=== PATIENT | male | born 1960 | race Caucasian/White ===

== ENCOUNTER 2022-03-25 14:45 | Inpatient (IN) | payer OTHER ==
[~2022-03-25] VITALS: Ht 193 cm; Wt 145.2 kg
[2022-03-25] MEDS ORDERED: LISINOPRIL40 MG PO (17:53)
[2022-03-25] MEDS ORDERED: JARDIANCE25 MG PO (17:53)
[2022-03-25] MEDS ORDERED: METFORMIN HCL500 M1 PO (17:53)
[2022-03-25] MEDS ORDERED: HYDROCODON-ACE1 EA10 PO (18:46)
[2022-03-25] MEDS ORDERED: METOPROLOL SUC100 MG PO (19:51)
[2022-03-25] MEDS ORDERED: CITALOPRAM HBR40 MG PO (19:51)
[2022-03-25] MEDS ORDERED: HYDROCHLOROTHIA25 MG PO (19:52)
[2022-03-25] MEDS ORDERED: CHLORTHALIDONE25 MG PO (19:52)
[2022-03-25] MEDS ORDERED: CRESTOR5 MG PO (19:53)
[2022-03-25] MEDS ORDERED: ASPIRIN325 MG PO (19:54)
[2022-03-26] MEDS ORDERED: LANTUS SOL100 UNIT/1 SUB-Q (14:41)
--- NOTE | 2022-03-30 08:13 | OR ---
[facility] [address] [place], [place] [address] Signed DATE OF OPERATION: 03/29/2022 SURGEON: Frank Arechiga DPM PREOPERATIVE. DIAGNOSES: 1. Osteomyelitis, proximal phalanx, left 1st digit. 2. Soft tissue abscess and infection. POSTOPERATIVE DIAGNOSES: 1. Osteomyelitis, proximal phalanx, left 1st digit. 2. Soft tissue abscess and infection. PROCEDURE PERFORMED: 1. Amputation of the left 1st digit at the metatarsal phalangeal joint. 2. Debridement of unhealthy necrotic soft tissue on the medial left foot. NURSE EXPERIMENTAL MACHINING LAB MANAGER: Eugenio Lara. ANESTHESIA: Local with MAC consisting of 1:1 mix of 2% lidocaine plain and 0.5% ropivacaine plain, 10 mL of this mixture were utilized and additional 5 mL of just 0.5% ropivacaine was also utilized in the ankle block format. ESTIMATED BLOOD LOSS: Less than 5 mL or minimal. HEMOSTASIS: Ankle tourniquet. MATERIALS USED: Stimulan Rapid Cure beads set of 5 mL mixed with 1/3rd gram of vancomycin. 3-0 nylon was also utilized. PROCEDURE IN DETAIL: The patient was brought into the operating room and placed upon the operating table in the supine position. Following IV sedation, the above local anesthesia was administered around the patient's left medial foot and ankle regions. The foot was then scrubbed, prepped, and draped in the usual sterile technique. An Esmarch bandage was then utilized to exsanguinate the patient's left foot and then left wrapped around the ankle Electronically Signed By: FRANK ARECHIGA DPM 03/30/22 0813 PATIENT NAME: JESSICA BATES OPERATIVE REPORT DATE OF : 56 REPORT #: [id number] PHYSICIAN: FRANK ARECHIGA DPM PCP: OTHER PCP REPORT IS CONFIDENTIAL AND NOT TO BE RELEASED WITHOUT AUTHORIZATION [facility] [address] [place], [place] [address] Signed to act as tourniquet. Attention was then directed to the left medial foot where multiple small wounds were located at metatarsophalangeal joint level. Utilizing a #15 surgical blade, an incision was performed leaving the intact viable tissue on the plantar aspect of the digits well circumscribing around the open wounds on the medial and lateral aspect of the base of the first digit. The incision was extended along the medial and lateral aspects of the first digit distally to capture the viable plantar integument. The incision was deepened through the soft tissue and deep fascia down to the bone. Also on the dorsal aspect of the first metatarsal a transverse incision was made joining in the incisions that ran along the medial and lateral aspects of the first digit. This incision was also deepened down to the metatarsophalangeal joint. Transverse capsulotomy was performed utilizing a #64 blade. The soft tissue was degloved from the plantar aspect of the first digit and the first digit was then removed with the dorsal integument intact. This was passed to the back table to be sent to Pathology for review. At this time, nonvascular tissues such as tendon and deep fascia were slightly debrided. There were area of necrosis or pockets of brown or grayish fatty tissue that were present along with the fibrotic tissue and gelatinous bioburden. In all, there was only approximately 10% of the soft tissue that appear to be involved around the base of the digit, however there was a tracking that extended more proximally into the skin depths that located over the dorsal 2nd metatarsal as well as proximally over the dorsal medial aspect of the first metatarsal. A lot of the infection appeared also to have occurred along the flexor tendon area of the plantar aspect of the foot. This area was also debrided. The articular surface in the first metatarsal appeared to be viable with no discoloration and present no sign of active bacterial infection. Structural integrity was also found to be good. The dorsal second metatarsal ulceration was debrided full skin thickness down to deep fascia in this area. Skin margins were also freshened and necrotic tissue under adjacent integument was also debrided as needed. Pulse lavage was then utilized to copiously flush the area with sterile normal saline. Next, a small amount of Stimulan beads with vancomycin was then placed around the first metatarsal head. The plantar skin flap from the removal of the first digit was then brought out proximally and sutured in place to close the primary amputation site. The ulceration on the second metatarsal dorsally was left open. Surgical site was closed utilizing 3-0 nylon in the simple interrupted suture technique. The wound was then dressed utilizing Xeroform over the open portion at the dorsal second metatarsal and also covering the suture closed area of the first digit amputation. Light fluff gauze was applied followed by silver foam, additional fluff gauze, Kerlix, Coban, ABD pad were also applied dorsally over the open wound area to capture any bleeding from that wound area. Coban was applied for light compression. The ankle tourniquet was removed and prompt hyperemic response was noted to all digits of the patient's left foot that remained digits 2 through 5. The patient was then escorted to the recovery room area with vital signs intact and again good circulation and cap refill time to the digits. The patient tolerated the procedure and the anesthesia well. The patient has to be readmitted to the Medical Surgical floor for further observation and Electronically Signed By: FRANK ARECHIGA DPM 03/30/22 0813 PATIENT NAME: JESSICA BATES OPERATIVE REPORT DATE OF : 56 REPORT #: [id number] PHYSICIAN: FRANK ARECHIGA DPM PCP: OTHER PCP REPORT IS CONFIDENTIAL AND NOT TO BE RELEASED WITHOUT AUTHORIZATION [address] [address] Signed antibiotic placement. Frank Arechiga DPM /CLARITA /[id number] Copies: ~ Electronically Signed By: FRANK ARECHIGA DPM 03/30/22812 PATIENT NAME: JESSICA BATES OPERATIVE REPORT DATE OF : 56 REPORT #: [id number] PHYSICIAN: FRANK ARECHIGA DPM PCP: OTHER PCP REPORT IS CONFIDENTIAL AND NOT TO BE RELEASED WITHOUT AUTHORIZATION
[2022-03-30] MEDS ORDERED: AMOX TR-K CLV1 EAC1 PO (10:00)
[2022-03-30] MEDS ORDERED: HYDROCODON-ACE1 EA10 PO (10:01)
--- NOTE | 2022-04-02 17:28 | PATH ---
[facility] [address] [place], [place] [address] Signed SPECIMEN(S): A LEFT BIG TOE PROXIMAL PHALANX SPECIMEN SOURCE: A. LEFT BIG TOE PROXIMAL PHALANX CLINICAL HISTORY: Sepsis secondary to left foot purulent cellulitis FINAL PATHOLOGIC DIAGNOSIS: First toe, left, disarticulation amputation: - Acute osteomyelitis. - Soft tissue abscess and necrosis with overlying epidermal ulceration. NAL:smh:C2NR MICROSCOPIC EXAMINATION: Histologic sections of all submitted blocks are examined by light microscopy. These findings, together with the gross examination, support the pathologic diagnosis. GROSS DESCRIPTION: The specimen, labeled "Tonny left big toe as per the requisition," is received in formalin and consists of a single digit (7.8 cm proximal to distal x 3.5 cm medial to lateral x 3.2 cm dorsal to plantar) that has been disarticulated from the metatarsophalangeal joint. The epidermal surface on the plantar aspect is removed and exposes underlying soft tissue. At the medial proximal aspect, 0.2 cm from the skin soft tissue margins, is a 2.6 x 2.1 x 0.6 cm ulcerative, gangrenous lesion. At the proximal lateral aspect, the skin appears to be previously removed and exposes olguin purple mottled, necrotic subcutaneous tissue (2.0 cm in greatest dimension). The skin and soft tissue margins are inked blue. The underlying bone is firm and cuts with difficulty. Machine Hoop Maker Helper sections are submitted for Stat decalcification as follows: Cassette summary A1 medial lesion with underlying bone A2 lateral lesion with underlying bone KD (under the direct supervision of a pathologist) The Gross Description was prepared using a voice recognition system. The report was reviewed for accuracy; however, sound-alike word errors, addition and/or PATIENT NAME: JESSICA BATES PATHOLOGY DATE OF : 56 REPORT #: [id number] PHYSICIAN: JAKE PATHOLOGY PCP: OTHER PCP REPORT IS CONFIDENTIAL AND NOT TO BE RELEASED WITHOUT AUTHORIZATION [facility] [address] [place] [address] Signed deletions may occur. If there is any question about this report, please contact Client Services. PERFORMING LABORATORY: The technical component was [place] [address] (CLIA# [id number]). Professional interpretation was performed by [facility], [address] [address] (CLIA# [id number]). Diagnostician: Charlene Weinberg MD Pathologist Electronically Signed 04/02/2022 Copies: ~ PATIENT NAME: JESSICA BATES PATHOLOGY DATE OF : 56 REPORT #: [id number] PHYSICIAN: JAKE PATHOLOGY PCP: OTHER PCP REPORT IS CONFIDENTIAL AND NOT TO BE RELEASED WITHOUT AUTHORIZATION
== END 2022-03-30 12:05 | disposition home or self-care (01) | DRG 854 ==
LOC: ED 14:45 → CCU 20:49 → MS 20:49
PROVIDERS: Podiatrist Foot & Ankle Surgery; ADMIT Internal Medicine; ATTEND Internal Medicine
PROC: 3E03329 Introduction of Other Anti-infective into Peripheral Vein, Percutaneous Approach (ICD-10-PCS; 2022-03-25)
PROC: 0S9N0ZZ Drainage of Left Metatarsal-Phalangeal Joint, Open Approach (ICD-10-PCS; 2022-03-26)
PROC: 0JBR0ZZ Excision of Left Foot Subcutaneous Tissue and Fascia, Open Approach (ICD-10-PCS; 2022-03-26)
PROC: 0Y6N0Z4 Detachment at Left Foot, Complete 1st Ray, Open Approach (ICD-10-PCS; principal; 2022-03-29 10:00)
DX: A40.1 Sepsis due to streptococcus, group B (principal); L03.116 Cellulitis of left lower limb; M86.8X7 Other osteomyelitis, ankle and foot; I96 Gangrene, not elsewhere classified; Z20.822 Contact with and (suspected) exposure to COVID-19; I10 Essential (primary) hypertension; E11.69 Type 2 diabetes mellitus with other specified complication; L97.523 Non-pressure chronic ulcer of other part of left foot with necrosis of muscle; E11.621 Type 2 diabetes mellitus with foot ulcer; E11.65 Type 2 diabetes mellitus with hyperglycemia; F39 Unspecified mood [affective] disorder; E78.5 Hyperlipidemia, unspecified; Z79.82 Long term (current) use of aspirin; Z79.84 Long term (current) use of oral hypoglycemic drugs; Z79.899 Other long term (current) drug therapy
CPT/HCPCS: 36415; 73630; 73700; 73723; 80048; 80053; 80202; 82565; 83036; 83605; 85025; 87040; 87070; 87075; 87077; 87186; 87205; A9270; A9577; C1713; J0131; J0295; J0696; J1100; J1650; J1815; J2001; J2405; J2704; J2795; J3010; J3370; J7030; J7060; J7121; Q9967; U0003

== ENCOUNTER 2023-06-25 09:20 | Day surgery (SDC) | payer OTHER ==
[~2023-06-25] VITALS: Ht 190.5 cm; Wt 145.4 kg
[~2023-06-25 09:20] MED LIST: AMOX TR-K CLV1 EAC1 PO; ASPIRIN325 MG PO; CHLORTHALIDONE25 MG PO; CITALOPRAM HBR40 MG PO; COLACE100 MG PO; CRESTOR5 MG PO; DOXYCYCLINE HY100 MG PO; HYDROCHLOROTHIA25 MG PO; HYDROCODON-ACE1 EA10 PO; JARDIANCE25 MG PO; LANTUS SOL100 UNIT/1 SUB-Q; LISINOPRIL40 MG PO; METFORMIN HCL1000 MG PO; METOPROLOL SUC100 MG PO; OXYCODONE HCL10 MG PO; ROSUVASTATIN CAL5 MG PO; TAMSULOSIN HCL0.4 MG PO; TRULICITY1.5 MG/0.5
[2023-06-25 09:40] VITALS: BP 127/86
[2023-06-25] MEDS ORDERED: SUDAFED 12 HOU120 MG PO (09:48)
[2023-06-25 12:22] VITALS: BP 122/78
--- NOTE | 2023-06-25 15:26 | OR ---
[facility] [address] [place], [place] [address] Signed DATE OF OPERATION: 06/25/2023 SURGEON: Jorge Luis Armstrong MD PREOPERATIVE DIAGNOSIS: Right ear basal cell carcinoma. POSTOPERATIVE DIAGNOSIS: Right ear basal cell carcinoma. PROCEDURE: Wide local excision right ear basal cell carcinoma. ANESTHESIA: Local. PREOPERATIVE HISTORY: Jessica is a 62-year-old man, who had a shave biopsy of the lesion behind the right ear on the posterior surface of the pinna. This was a basal cell carcinoma, incompletely excised with positive margins. He is taken to the operating room for a wide local excision. OPERATIVE PROCEDURE AND FINDINGS: After informed consent, the patient was taken to the operating room, placed in the semi-sitting position. Monitoring was performed. The patient and procedure were verified. The right ear was sterilely prepped and draped. The lesion in question was about a cm to cm and a half in diameter in the posterior pinna near the postauricular crease. This was reddish area consistent with a recent shave biopsy. After sterile prep and drape, local 1% lidocaine with epinephrine was injected around the area. An elliptical excision was then performed about a cm by 3 cm in length down through skin and, subcutaneous tissue. Specimen was sent to pathology in formalin. Hemostasis was obtained with needle point cautery. The wound was then closed after elevating the edges to allow for tension-free closure with 5-0 interrupted Vicryl subcu and 5-0 running nylon on the skin. The skin was cleansed. Neosporin was applied. The patient was transferred back to same-day in good condition. No complications. BLOOD LOSS: Minimal. SPECIMEN: Electronically Signed By: JORGE LUIS ARMSTRONG MD 06/25/23 1526 PATIENT NAME: JESSICA BATES OPERATIVE REPORT DATE OF : 56 REPORT #: [id number] PHYSICIAN: JORGE LUIS ARMSTRONG MD PCP: KATE BARNETT MD REPORT IS CONFIDENTIAL AND NOT TO BE RELEASED WITHOUT AUTHORIZATION [address] [address] Signed To pathology DRAINS: No drains. Jorge Luis Armstrong MD GC/CLARITA /[id number] Copies: ~ Electronically Signed By: JORGE LUIS ARMSTRONG MD 06/25/23 1526 PATIENT NAME: JESSICA BATES OPERATIVE REPORT DATE OF : 56 REPORT #: [id number] PHYSICIAN: JORGE LUIS ARMSTRONG MD PCP: KATE BARNETT MD REPORT IS CONFIDENTIAL AND NOT TO BE RELEASED WITHOUT AUTHORIZATION
== END 2023-06-25 12:50 | disposition home or self-care (01) ==
LOC: DS 09:20 → OPS 09:20 → DS 09:30 → OPS 11:00
PROVIDERS: ATTEND Otolaryngology
PROC: 09B0XZZ Excision of Right External Ear, External Approach (ICD-10-PCS; principal; 2023-06-25 11:00)
DX: C44.212 Basal cell carcinoma of skin of right ear and external auricular canal (principal)
CPT/HCPCS: 88305

== ENCOUNTER 2023-12-17 15:54 | Emergency (ER) | payer OTHER ==
[~2023-12-17] VITALS: Ht 190.5 cm; Wt 149.3 kg
[~2023-12-17 15:54] MED LIST changes: +SUDAFED 12 HOU120 MG PO
[2023-12-17 16:33] VITALS: BP 117/71
== END 2023-12-17 16:33 | disposition left against medical advice (07) ==
LOC: ED 15:54
DX: R42 Dizziness and giddiness (principal); Z53.21 Procedure and treatment not carried out due to patient leaving prior to being seen by health care provider